=== PATIENT | female | born 1975 | race Caucasian/White ===

== ENCOUNTER → 2018-12-05 11:14 | Outpatient (CLI) | payer OTHER, SELFPAY ==
--- NOTE | 2018-12-05 | DI.MG.S_ITS ---
BILATERAL DIGITAL SCREENING MAMMOGRAM 3D/2D WITH CAD: 12/05/2018 CLINICAL: Routine screening. Comparison is made to exams dated: 04/15/2017 mammogram - [facility], 04/08/2017 breast MRI, and 02/22/2017 mammogram - [facility]. The tissue of both breasts is heterogeneously dense. This may lower the sensitivity of mammography. Current study was also evaluated with a Computer Aided Detection (CAD) system. There are benign calcifications in the left breast. There also are benign biopsy clips in the left breast. No significant masses, calcifications, or other findings are seen in either breast. There has been no significant interval change. IMPRESSION: There is no mammographic evidence of malignancy. A 1 year screening mammogram is recommended. This exam was interpreted at Station ID: [id number]. NOTE: For mammograms, a report in lay terms will be sent to the patient. Approximately 15% of breast malignancies will not be visualized mammographically. In the management of a palpable breast mass, a negative mammogram must not discourage biopsy of a clinically suspicious lesion. Electronically Signed By: Isatu alcantara/cindy:12/05/2018 20:28:50 copy to: Gilma Lee letter sent: Normal Exam ACR BI-RADS Category 2: Benign Finding(s) 3342F
--- NOTE | 2018-12-05 | DI.US.S_ITS ---
PROCEDURE: US THYROID INDICATIONS: SCREENING HISTORY OF THYROID CANCER TECHNIQUE: Real-time scanning was performed of the thyroid gland, with image documentation. COMPARISON: None. FINDINGS: Normal appearance of the thyroid bed bilaterally status post thyroidectomy. No recurrent mass or fluid collection is seen. No adenopathy. IMPRESSION: Normal appearance of the thyroid operative bed, status post thyroidectomy. Dictated by: Casey FIGUEROA Interpreted: Ketan Cabello MD on 12/05/2018 at 13:12 Approved by: Ketan Cabello M.D. on 12/08/2018 at 13:36
== END ==
PROVIDERS: PCP Nurse Practitioner Family; Visit Provider Nurse Practitioner Family
DX: Z12.31 Encounter for screening mammogram for malignant neoplasm of breast (principal); Z85.850 Personal history of malignant neoplasm of thyroid; Z98.1 Arthrodesis status
CPT/HCPCS: 76536; 77063; 77067

== ENCOUNTER → 2020-08-24 15:02 | Outpatient (CLI) | payer BC, SELFPAY ==
--- NOTE | 2020-08-24 15:08 | DI.MG.S_ITS ---
BILATERAL DIGITAL SCREENING MAMMOGRAM 3D/2D WITH CAD: 08/24/2020 CLINICAL: Routine screening. Family history of breast cancer. Comparison is made to exams dated: 12/05/2018 mammogram - [facility], 04/15/2017 mammogram - [facility], 02/22/2017 mammogram, and 12/21/2016 mammogram - [facility]. The tissue of both breasts is heterogeneously dense. This may lower the sensitivity of mammography. Current study was also evaluated with a Computer Aided Detection (CAD) system. There are calcifications in the left breast. There also are biopsy clips in the left breast. No significant masses, calcifications, or other findings are seen in either breast. There has been no significant interval change. IMPRESSION: BENIGN There is no mammographic evidence of malignancy. A 1 year screening mammogram is recommended. This exam was interpreted at Station ID: [id number]. NOTE: For mammograms, a report in lay terms will be sent to the patient. Approximately 15% of breast malignancies will not be visualized mammographically. In the management of a palpable breast mass, a negative mammogram must not discourage biopsy of a clinically suspicious lesion. Electronically Signed By: Devante Pond M.D. aty/:08/24/2020 16:37:37 copy to: Gilma Lee letter sent: Normal Exam ACR BI-RADS Category 2: Benign Finding(s) 3342F
--- NOTE | 2020-08-24 15:09 | DI.RAD.S_ITS ---
PROCEDURE: XR LUMBAR SPINE 2-3V INDICATIONS: 45-year-old female back pain. TECHNIQUE: 2 views of the lumbar spine were acquired. COMPARISON: None. FINDINGS: Bones: 5 [id number] vertebrae are present. Trace retrolisthesis L4-L5. Moderate L5-S1 disc degeneration.. No vertebral body compression fractures. No suspicious bony lesions. Soft tissues: Overlying bowel gas pattern is normal. No suspicious soft tissue calcifications. IMPRESSION: Trace retrolisthesis at the L4-L5 level and there is moderate L5-S1 disc degeneration. Dictated by: Casey Serrato [facility] Interpreted: Sara Reddy MD on 08/24/2020 at 15:31 Approved by: Sara Reddy MD, PhD on 08/24/2020 at 15:38
--- NOTE | 2020-08-24 15:09 | DI.US.S_ITS ---
PROCEDURE: US THYROID INDICATIONS: Personal history of malignant neoplasm of thyroid, TECHNIQUE: Real-time scanning was performed of the thyroid gland, with image documentation. COMPARISON: [facility], US, US THYROID, 12/05/2018, 11:44. FINDINGS: Postsurgical appearance status post thyroidectomy. No discrete sonographic mass is seen. No lymphadenopathy identified. IMPRESSION: Status post thyroidectomy, without discrete mass or enlarged lymphadenopathy in the operative bed. Approved by: Ketan Cabello M.D. on 08/24/2020 at 17:06
== END ==
PROVIDERS: PCP Nurse Practitioner Family; Referring Provider Physician Assistant; Visit Provider Physician Assistant
DX: Z85.850 Personal history of malignant neoplasm of thyroid (principal); M43.16 Spondylolisthesis, lumbar region; M51.37 Other intervertebral disc degeneration, lumbosacral region; Z12.31 Encounter for screening mammogram for malignant neoplasm of breast; Z80.3 Family history of malignant neoplasm of breast
CPT/HCPCS: 72100; 76536; 77063; 77067

== ENCOUNTER → 2021-08-07 18:43 | Outpatient (ROUT) | payer OTHER, SELFPAY ==
[2021-08-07 19:23] LABS: HEMOLYSIS 45 (0-50); Iron 90 ug/dL (37-170)
[2021-08-07 19:25] LABS: Alanine Aminotransferase 42 IU/L (<35); Albumin 4.5 g/dL (3.5-5.0); Albumin Globulin Ratio 1.8 (1.0-2.8); Alkaline Phosphatase 70 U/L (38-126); Aspartate Aminotransferase 40 IU/L (14-36); BUN Creatinine Ratio 8.6 (6-22); Bilirubin Total 0.7 mg/dL (0.2-1.3); Blood Urea Nitrogen 5 mg/dL (7-17); Calcium 9.1 mg/dL (8.4-10.2); Carbon Dioxide 21 mmol/L (22-32); Chloride 101 mmol/L (98-107); Estimated Glomerular Filt Rate > 60.0 mL/min (>60); Globulin 2.5 g/dL (1.7-4.1); Glucose 58 mg/dL (70-100); HEMOLYSIS 45 (0-50); Potassium 4.6 mmol/L (3.4-5.1); Sodium 135 mmol/L (137-145)
[2021-08-07 19:34] LABS: Percent Iron Saturation 35 % (15-50); Total Iron Binding Capacity 254 ug/dL (265-497); Transferrin 189 mg/dL (206-381)
[2021-08-07 19:57] LABS: Thyroid Stimulating Hormone 1.02 uIU/mL (0.47-4.68)
[2021-08-07 20:00] LABS: Ferritin 235 ng/mL (6-137)
[2021-08-07 20:55] LABS: Free T4, Direct Thyroxine 1.21 ng/dL (0.78-2.19)
[2021-08-08 22:47] LABS: Triiodothyronine T3 Total 80 ng/dL (71-180)
== END ==
PROVIDERS: PCP Nurse Practitioner Family; Visit Provider Physician Assistant
DX: E03.9 Hypothyroidism, unspecified (principal); E55.9 Vitamin D deficiency, unspecified; R94.5 Abnormal results of liver function studies
CPT/HCPCS: 80053; 82306; 82728; 83540; 83550; 84439; 84443; 84480

== ENCOUNTER → 2022-06-15 11:57 | Outpatient (CLI) | payer OTHER, SELFPAY ==
[2022-06-15 13:25] LABS: D Dimer 240 ng/ml (<500)
[2022-06-15 13:44] LABS: Add Manual Diff / Slide Review NO; Basophils Absolute Auto 0 /uL (0-100); Basophils Percent Auto 0.2 % (0-2); Eosinophils Absolute Auto 100 /uL (0-450); Eosinophils Percent Auto 0.9 % (2-4); Hematocrit 39.5 % (36-46); Hemoglobin 13.5 g/dL (12.0-16.0); Lymphocytes Absolute Auto 2000 /uL (1100-4500); Lymphocytes Percent Auto 25.8 % (25-40); Mean Corpuscular HGB Conc 34.1 % (30-36); Mean Corpuscular Hemoglobin 32.6 PG (26-34); Mean Corpuscular Volume 95.7 fL (80-100); Monocytes Absolute Auto 700 /uL (0-900); Monocytes Percent Auto 8.8 % (3-14); Neutrophils Absolute Auto 5000 /uL (1500-7000); Neutrophils Percent Auto 64.3 % (50-75); Platelet Count 250 X10^3/uL (150-400); Red Blood Cell Count 4.13 X10^6/uL (4.0-5.2); Red Cell Distribution Width 13.2 % (11.6-14.8); White Blood Cell Count 7.8 X10^3/uL (4.5-11.0)
[2022-06-15 14:36] LABS: Free T4, Direct Thyroxine 1.38 ng/dL (0.78-2.19)
[2022-06-15 14:50] LABS: Thyroid Stimulating Hormone 3.03 uIU/mL (0.47-4.68)
[2022-06-18 11:17] LABS: C1 Esterase Inhibitor 36 mg/dL (21-39)
[2022-06-20 15:37] LABS: ANA Screen, IFA Negative (.)
== END ==
PROVIDERS: PCP Nurse Practitioner Family; Referring Provider Physician Assistant; Visit Provider Physician Assistant
DX: T78.3XXA Angioneurotic edema, initial encounter (principal)
CPT/HCPCS: 36415; 84439; 84443; 85025; 85379; 86038; 86160

== ENCOUNTER → 2022-07-06 07:57 | Outpatient (CLI) | payer OTHER, SELFPAY ==
--- NOTE | 2022-07-06 | DI.MG.S_ITS ---
BILATERAL DIGITAL SCREENING MAMMOGRAM 3D/2D WITH CAD: 07/06/2022 CLINICAL: Routine screening. Family history of breast cancer. Comparison is made to exams dated: 08/24/2020 mammogram, 12/05/2018 mammogram - [facility], and 04/15/2017 mammogram - [facility]. Both breasts are extremely dense, which lowers the sensitivity of mammography (category d />75% glandular tissue). Current study was also evaluated with a Computer Aided Detection (CAD) system. There are benign calcifications in the left breast. There also are biopsy clips in the left breast. There is an irregular asymmetry with a circumscribed margin in the left breast middle depth superior region seen on the mediolateral oblique view only. This is more prominent. No other significant masses, calcifications, or other findings are seen in either breast. IMPRESSION: INCOMPLETE: NEEDS ADDITIONAL IMAGING EVALUATION The irregular asymmetry in the left breast is indeterminate. Additional views with possible ultrasound are recommended. Based on Tyrer-Cuzick model (a risk assessment model), the patient's lifetime risk is 39.6% and her 10 year risk is 9.3%. If a patient has an elevated risk, a more comprehensive evaluation should be considered and/or a referral to a genetic counselor. The [place] [employer], [employer], and NCCN Guidelines advise the consideration of Breast MRI as an adjunct to screening mammography in patients whose Lifetime risk to develop breast cancer is 20% or higher. This exam was interpreted at Station ID: [id number]. NOTE: For mammograms, a report in lay terms will be sent to the patient. Approximately 15% of breast malignancies will not be visualized mammographically. In the management of a palpable breast mass, a negative mammogram must not discourage biopsy of a clinically suspicious lesion. Electronically Signed By: Joshua Lira M.D. acr/:07/09/2022 07:56:19 copy to: Gilma Lee letter sent: Additional Imaging Needed ACR BI-RADS Category 0: Incomplete 3340F
== END ==
PROVIDERS: PCP Family Medicine; Referring Provider Family Medicine; Visit Provider Family Medicine
DX: Z12.31 Encounter for screening mammogram for malignant neoplasm of breast (principal); Z80.3 Family history of malignant neoplasm of breast; R06.02 Shortness of breath
CPT/HCPCS: 77063; 77067; 93005

== ENCOUNTER → 2022-07-09 08:00 | Outpatient (CLI) | payer OTHER, SELFPAY ==
[2022-07-09 08:58] LABS: Add Manual Diff / Slide Review NO; Basophils Absolute Auto 0 /uL (0-100); Basophils Percent Auto 0.5 % (0-2); Eosinophils Absolute Auto 100 /uL (0-450); Eosinophils Percent Auto 1.7 % (2-4); Hematocrit 44.3 % (36-46); Lymphocytes Absolute Auto 1700 /uL (1100-4500); Mean Corpuscular HGB Conc 33.9 % (30-36); Mean Corpuscular Volume 94.5 fL (80-100); Monocytes Absolute Auto 500 /uL (0-900); Monocytes Percent Auto 9.6 % (3-14); Neutrophils Absolute Auto 2600 /uL (1500-7000); Neutrophils Percent Auto 53.2 % (50-75); Platelet Count 184 X10^3/uL (150-400); Red Blood Cell Count 4.68 X10^6/uL (4.0-5.2); White Blood Cell Count 4.9 X10^3/uL (4.5-11.0)
[2022-07-09 09:19] LABS: Alanine Aminotransferase 111 IU/L (<35); Albumin 4.3 g/dL (3.5-5.0); Albumin Globulin Ratio 1.5 (1.0-2.8); Alkaline Phosphatase 93 U/L (38-126); Aspartate Aminotransferase 75 IU/L (14-36); BUN Creatinine Ratio 9.1 (6-22); Bilirubin Total 0.6 mg/dL (0.2-1.3); Blood Urea Nitrogen 6 mg/dL (7-17); Calcium 9.3 mg/dL (8.4-10.2); Carbon Dioxide 22 mmol/L (22-32); Chloride 97 mmol/L (98-107); Cholesterol 194 mg/dL (140-199); Estimated Glomerular Filt Rate > 60 mL/min (>60); Globulin 2.9 g/dL (1.7-4.1); Glucose 88 mg/dL (70-100); HDL Cholesterol 72 mg/dL (40-60); HEMOLYSIS < 15 (0-50); LDL Cholesterol Calculated 96 mg/dL (<100); Potassium 3.8 mmol/L (3.4-5.1); Sodium 136 mmol/L (137-145); Total Protein 7.2 g/dL (6.3-8.2); Triglycerides 129 mg/dL (35-150)
[2022-07-09 09:22] LABS: Iron 102 ug/dL (37-170)
[2022-07-09 09:31] LABS: Percent Iron Saturation 39 % (15-50); Total Iron Binding Capacity 261 ug/dL (265-497)
[2022-07-09 09:33] LABS: Prolactin 20.1 ng/mL (3.0-18.6); Vitamin D 25 Hydroxy (D3) 111 ng/mL (30.0-100.0)
[2022-07-09 09:34] LABS: Progesterone, Total 5.86 ng/mL
[2022-07-09 09:50] LABS: Estradiol, Total 120.6 pg/mL; TSH w/ Reflex to FT4 0.34 uIU/mL (0.47-4.68)
[2022-07-09 09:51] LABS: Ferritin 295 ng/mL (6-137)
[2022-07-09 10:06] LABS: Vitamin B12 994 pg/mL (239-931)
[2022-07-09 10:45] LABS: Free T4, Direct Thyroxine 1.96 ng/dL (0.78-2.19)
[2022-07-11 08:18] LABS: Triiodothyronine T3 Total 121 ng/dL (71-180)
[2022-07-19 08:20] LABS: Testosterone % Fr + Wkly bound 2.1 % (3.0-18.0); Testosterone Fr+Wkly bound 1.2 ng/dL (0.0-9.5); Testosterone, Total 58.7 ng/dL (.)
[2022-07-21 21:28] LABS: Dehydroepiandrosterone (DHEA) 465
== END ==
PROVIDERS: PCP Family Medicine; Referring Provider Family Medicine; Visit Provider Family Medicine
DX: N91.2 Amenorrhea, unspecified (principal); E03.9 Hypothyroidism, unspecified; E55.9 Vitamin D deficiency, unspecified; R94.5 Abnormal results of liver function studies; Z83.49 Family history of other endocrine, nutritional and metabolic diseases
CPT/HCPCS: 36415; 80053; 80061; 82306; 82607; 82627; 82670; 82728; 83540; 83550; 84144; 84146; 84270; 84403; 84439; 84443; 84480; 85025

== ENCOUNTER → 2022-08-03 07:59 | Outpatient (CLI) | payer OTHER, SELFPAY ==
--- NOTE | 2022-08-03 | DI.MG.S_ITS ---
UNILATERAL LEFT DIGITAL DIAGNOSTIC MAMMOGRAM 3D/2D WITH ADDITIONAL VIEWS: 08/03/2022 CLINICAL: Additional evaluation requested from prior study. Comparison is made to exams dated: 07/06/2022 mammogram, 08/24/2020 mammogram, 12/05/2018 mammogram, 02/22/2017 ultrasound, and 02/22/2017 mammogram - [facility]. The left breast is heterogeneously dense, which may obscure small masses (category c / 51-75% glandular tissue). There are benign calcifications in the left breast. There also are biopsy clips in the left breast. There is an oval focal asymmetry with a circumscribed margin in the left breast at 2 o'clock posterior depth. This is seen in additional views. This is more prominent. There is a biopsy clip associated with the focal asymmetry. No other significant masses or calcifications are seen in the breast. IMPRESSION: INCOMPLETE: NEEDS ADDITIONAL IMAGING EVALUATION The oval focal asymmetry in the left breast is indeterminate. An ultrasound is recommended. Based on Tyrer-Cuzick model (a risk assessment model), the patient's lifetime risk is 28.1% and her 10 year risk is 6.2%. If a patient has an elevated risk, a more comprehensive evaluation should be considered and/or a referral to a genetic counselor. The [place] [employer], [employer], and NCCN Guidelines advise the consideration of Breast MRI as an adjunct to screening mammography in patients whose Lifetime risk to develop breast cancer is 20% or higher. This exam was interpreted at Station ID: [id number]. NOTE: For mammograms, a report in lay terms will be sent to the patient. Approximately 15% of breast malignancies will not be visualized mammographically. In the management of a palpable breast mass, a negative mammogram must not discourage biopsy of a clinically suspicious lesion. Electronically Signed By: Girish link/cindy:08/03/2022 10:26:32 copy to: Gilma Lee ACR BI-RADS Category 0: Incomplete 3340F
--- NOTE | 2022-08-03 | DI.US.S_ITS ---
LIMITED ULTRASOUND OF LEFT BREAST: 08/03/2022 CLINICAL: Add views of left breast. Comparison is made to exams dated: 08/03/2022 mammogram, 07/06/2022 mammogram, 08/24/2020 mammogram, 12/05/2018 mammogram, 02/22/2017 ultrasound, and 02/22/2017 mammogram - [facility]. Color flow ultrasound of the left breast 1-2 o'clock region was performed. Teague scale images of the real-time examination were reviewed. There is a benign 0.6 cm x 0.5 cm x 0.5 cm cluster of oval simple cysts with a smooth internal wall in the left breast at 2 o'clock posterior depth 9 cm from the nipple. This cluster of oval simple cysts is anechoic. This correlates with mammography findings and the previous biopsy. IMPRESSION: BENIGN There is no sonographic evidence of malignancy. The 0.6 cm x 0.5 cm x 0.5 cm cluster of oval simple cysts in the left breast is benign. Return to annual mammogram screening schedule is recommended. This exam was interpreted at Station ID: [id number]. Electronically Signed By: Girish link/cindy:08/03/2022 10:29:07 copy to: Gilma Lee letter sent: Normal Exam Ultrasound BI-RADS: 2 Benign
== END ==
PROVIDERS: PCP Family Medicine; Referring Provider Family Medicine; Visit Provider Family Medicine
DX: R92.8 Other abnormal and inconclusive findings on diagnostic imaging of breast (principal); N60.02 Solitary cyst of left breast
CPT/HCPCS: 76642; 77065; G0279

== ENCOUNTER → 2022-09-03 12:32 | Outpatient (CLI) | payer OTHER, SELFPAY ==
[2022-09-03 16:38] LABS: Alanine Aminotransferase 50 IU/L (<35); Albumin 4.1 g/dL (3.5-5.0); Albumin Globulin Ratio 1.6 (1.0-2.8); Alkaline Phosphatase 75 U/L (38-126); Aspartate Aminotransferase 48 IU/L (14-36); Bilirubin Total 0.9 mg/dL (0.2-1.3); Blood Urea Nitrogen 4 mg/dL (7-17); Calcium 8.9 mg/dL (8.4-10.2); Carbon Dioxide 22 mmol/L (22-32); Chloride 96 mmol/L (98-107); Estimated Glomerular Filt Rate > 60 mL/min (>60); Globulin 2.6 g/dL (1.7-4.1); Glucose 68 mg/dL (70-100); HEMOLYSIS < 15 (0-50); Potassium 4.3 mmol/L (3.4-5.1); Sodium 134 mmol/L (137-145); Total Protein 6.7 g/dL (6.3-8.2)
[2022-09-03 16:56] LABS: PROMO Vitamin D 25 Hydroxy 92.3 ng/mL (30.0-100.0)
[2022-09-03 17:13] LABS: Ferritin 394 ng/mL (6-137)
[2022-09-04 06:02] LABS: TSH w/ Reflex to FT4 < 0.02 uIU/mL (0.47-4.68)
[2022-09-04 07:05] LABS: Free T4, Direct Thyroxine 3.56 ng/dL (0.78-2.19)
[2022-09-07 16:29] LABS: Prolactin 10.8 ng/mL (3.0-18.6)
== END ==
PROVIDERS: PCP Family Medicine; Referring Provider Family Medicine; Visit Provider Family Medicine
DX: R94.5 Abnormal results of liver function studies (principal); R79.89 Other specified abnormal findings of blood chemistry; E03.9 Hypothyroidism, unspecified; Z85.850 Personal history of malignant neoplasm of thyroid; E67.3 Hypervitaminosis D
CPT/HCPCS: 36415; 80053; 81256; 82306; 82728; 84145; 84146; 84439; 84443

== ENCOUNTER 2022-10-02 08:52 | Day surgery (SDC) | payer OTHER, SELFPAY ==
[2022-10-02 09:14] VITALS: BP 138/91; PULSE 100; RESP 20; TEMP 37.3; O2SAT 98; BMI 21.6
[2022-10-02] MEDS: LACTATED RINGERS 1,000 ML 200 ML IV (09:18)
[2022-10-02] MEDS: ONDANSETRON 4 MG/2 ML INJ IV (09:20)
--- NOTE | 2022-10-02 10:24 | P.HP_ITS ---
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 They have never had any previous examination for such. No personal or family history of colon cancer. On further history denies any recent gastrointestinal symptoms. No nausea, vomiting, abdominal pain, unexplained weight loss, change in bowel habits, or blood per rectum. [facility] Social History household members: spouse Smoking Status: Never smoker Meds Home Medications and Allergies Home Medications Medication Instructions Recorded Confirmed Type levothyroxine 137 mcg tablet 137 mcg PO DAILY 04/23/19 10/02/22 History (Synthroid) Allergies Allergy/AdvReac Type Severity Reaction Status Date / Time Sulfa (Sulfonamide Allergy Unknown Verified 10/02/22 09:13 Antibiotics) meperidine AdvReac Unknown Verified 10/02/22 09:13 Exam Vital Signs (past 8 hours): - 10/02/22 09:14 Temperature 99.1 F Pulse Rate 100 H Respiratory Rate 20 Blood Pressure 138/91 H Pulse Oximetry 98 Oxygen Delivery Method Room Air Oxygen Delivery Method Room Air Narrative Exam Narrative: General adult woman alert oriented no acute distress Chest nonlabored respiration Assessment & Plan Assessment & Plan narrative: 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 Technical details were discussed. Risks, benefits, alternatives explained. Risks including but not limited to myocardial infarction, aspiration, bleeding, pain, missed lesion, incomplete examination, need for further radiographic studies, colonic perforation, and need for major abdominal surgery were discussed. All questions were answered to their satisfaction, and they are in agreement with this plan.
[2022-10-02 10:58] VITALS: BP 112/79; PULSE 95; RESP 18; TEMP 36.4; O2SAT 99
--- NOTE | 2022-10-02 10:59 | PM.OP.COLON ---
Operative Date/Time/Diagnoses Date of procedure: 10/02/22 Time of procedure: 10:59 Pre-op diagnosis: Colorectal screening Post-op diagnosis: other (Normal colonoscopy) Procedure & Clinicians Study performed: Colonoscopy Same procedure as scheduled: Yes Indications: Colorectal screening Surgeon: Pedro Gustafson Procedure Notes Procedure in detail: The history and physical was performed/updated and the patient is ASA class is 2. The procedure was discussed in detail with the patient. Potential risks complications including infection, bleeding, missed diagnosis, perforation, need for surgery, and were explained. Their questions were answered and informed consent was obtained. Patient was brought to the procedure room and placed standard monitoring equipment. The patient's vital signs were monitored continuously throughout the entire procedure. Prior to starting time-out was performed. The patient was placed in the left lateral recumbent position. Procedural sedation was administered by anesthesia. Examination began with a thorough inspection of the perianal area there was no evidence of fissures, fistulae, external hemorrhoids or cutaneous malignancy. The colonoscopy scope was then placed into the anal canal and was advanced to the cecum, which was identified by the ileocecal valve, the appendiceal orifice and the confluence of the taenia. The scope was then slowly withdrawn examining colon thoroughly in all directions, irrigating it of any residual stool. The colon was without inflammation masses or polyps. Normal healthy colon, moderate tortuosity requiring external compression The patient tolerated the procedure well. They will be discharged once criteria are met. The prep was of good/excellent quality. The withdrawl time was 6 minutes. Specimen(s): none sent Impression: Normal colonoscopy Post-procedure Recommendations: Colonoscopy in 10 years and High fiber diet Disposition: same day surgery
[2022-10-02 11:03] VITALS: BP 121/77; PULSE 89; RESP 18; O2SAT 99
[2022-10-02 11:08] VITALS: BP 106/79; PULSE 99; RESP 18; O2SAT 100
[2022-10-02 11:12] VITALS: BP 107/78; PULSE 91; RESP 18; TEMP 36.7; O2SAT 100
== END 2022-10-02 11:25 | disposition home or self-care (01) ==
PROVIDERS: PCP Family Medicine; Referring Provider Surgery; Visit Provider Surgery
PROC: 0DJD8ZZ Inspection of Lower Intestinal Tract, Via Natural or Artificial Opening Endoscopic (ICD-10-PCS; CPT 45378; principal; 2022-10-02 10:15)
DX: Z12.11 Encounter for screening for malignant neoplasm of colon (principal)
CPT/HCPCS: 45378; J2250; J2405; J2704; J3010

== ENCOUNTER → 2023-08-05 14:05 | Outpatient (CLI) | payer OTHER, SELFPAY ==
[2023-08-05 14:54] LABS: Add Manual Diff / Slide Review NO; Basophils Absolute Auto 0 /uL (0-100); Basophils Percent Auto 0.2 % (0-2); Eosinophils Absolute Auto 100 /uL (0-450); Eosinophils Percent Auto 1.1 % (2-4); Hematocrit 38.2 % (36-46); Hemoglobin 13.2 g/dL (12.0-16.0); Lymphocytes Absolute Auto 1900 /uL (1100-4500); Lymphocytes Percent Auto 34.1 % (25-40); Mean Corpuscular HGB Conc 34.7 % (30-36); Mean Corpuscular Hemoglobin 32.6 PG (26-34); Mean Corpuscular Volume 93.8 fL (80-100); Monocytes Absolute Auto 500 /uL (0-900); Monocytes Percent Auto 9.4 % (3-14); Neutrophils Absolute Auto 3200 /uL (1500-7000); Neutrophils Percent Auto 55.2 % (50-75); Platelet Count 242 X10^3/uL (150-400); Red Blood Cell Count 4.07 X10^6/uL (4.0-5.2); Red Cell Distribution Width 12.8 % (11.6-14.8); White Blood Cell Count 5.7 X10^3/uL (4.5-11.0)
[2023-08-05 15:08] LABS: HEMOLYSIS < 15 (0-50); Iron 88 ug/dL (37-170)
[2023-08-05 15:12] LABS: Alanine Aminotransferase 42 IU/L (<35); Albumin 4.5 g/dL (3.5-5.0); Albumin Globulin Ratio 1.7 (1.0-2.8); Alkaline Phosphatase 57 U/L (38-126); Aspartate Aminotransferase 51 IU/L (14-36); BUN Creatinine Ratio 5.7 (6-22); Bilirubin Total 0.6 mg/dL (0.2-1.3); Blood Urea Nitrogen 3 mg/dL (7-17); Calcium 9.5 mg/dL (8.4-10.2); Carbon Dioxide 19 mmol/L (22-32); Chloride 96 mmol/L (98-107); Estimated Glomerular Filt Rate > 60 mL/min (>60); Globulin 2.7 g/dL (1.7-4.1); Glucose 78 mg/dL (70-100); HEMOLYSIS < 15 (0-50); Potassium 3.2 mmol/L (3.4-5.1); Sodium 134 mmol/L (137-145); Total Protein 7.2 g/dL (6.3-8.2)
[2023-08-05 15:21] LABS: Percent Iron Saturation 41 % (15-50); Total Iron Binding Capacity 214 ug/dL (265-497); Transferrin 184 mg/dL (206-381)
[2023-08-05 15:41] LABS: TSH w/ Reflex to FT4 0.11 uIU/mL (0.47-4.68)
[2023-08-05 15:43] LABS: Ferritin 233 ng/mL (6-137)
[2023-08-05 16:48] LABS: Free T4, Direct Thyroxine 2.45 ng/dL (0.78-2.19)
[2023-08-05 18:50] LABS: Vitamin D 25 Hydroxy (D3) 78.3 ng/mL (30.0-100.0)
== END ==
LOC: LAB 14:07
PROVIDERS: PCP Nurse Practitioner Family; Referring Provider Nurse Practitioner Family; Visit Provider Nurse Practitioner Family
DX: E03.9 Hypothyroidism, unspecified (principal); E55.9 Vitamin D deficiency, unspecified; R79.89 Other specified abnormal findings of blood chemistry; F41.0 Panic disorder [episodic paroxysmal anxiety]; R74.01 Elevation of levels of liver transaminase levels
CPT/HCPCS: 36415; 80053; 82306; 82728; 83540; 83550; 84439; 84443; 85025